=== PATIENT | male | born 2000 | race Two or more races ===

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

== ENCOUNTER 2022-09-10 05:03 | Emergency (ER) | payer MEDICAID ==
[~2022-09-10] VITALS: Ht 165.1 cm; Wt 54.6 kg
[2022-09-10 05:45] VITALS: BP 124/75
[2022-09-10] MEDS ORDERED: HYDR25CA PO (06:52)
== END 2022-09-10 07:02 | disposition home or self-care (01) ==
LOC: ER 05:03
DX: F41.1 Generalized anxiety disorder (principal); M54.2 Cervicalgia